=== PATIENT | male | born 1980 | race Caucasian/White ===

== ENCOUNTER 2025-03-09 16:02 | Emergency (ER) | payer OTHER, SELFPAY ==
[2025-03-09] MEDS ORDERED: Lidocaine 1% w/Epinephrine 1:100K 20 ML VIAL ONE (16:13)
[2025-03-09] MEDS ORDERED: Sulfameth/Trimethoprim DS 800-160mg TAB ONE (16:34)
== END 2025-03-09 16:47 | disposition home or self-care (01) ==
LOC: BURERS 16:02
DX: L02.416 Cutaneous abscess of left lower limb (principal)
CPT/HCPCS: 10060